=== PATIENT | female | born 1940 | race Caucasian/White ===

== ENCOUNTER → 2021-05-18 | Outpatient (CLI) | payer OTHER ==
[~2021-05-18] MED LIST: DILTIAZEM ER180 M2 PO; ELIQUIS5 MG PO; FUROSEMIDE 20 M20 MG PO; LIPITOR 40 MG T40 M1 PO; PRENATAL PO
== END ==
LOC: LAB 10:35
PROVIDERS: ATTEND Student in an Organized Health Care Education/Training Program
DX: Z01.812 Encounter for preprocedural laboratory examination (principal); Z20.822 Contact with and (suspected) exposure to COVID-19

== ENCOUNTER → 2021-05-21 | Outpatient (CLI) | payer OTHER ==
[~2021-05-21] VITALS: Ht 165.1 cm; Wt 95.3 kg
--- NOTE | 2021-05-21 15:22 | P ---
[facility] [place] [address] PROCEDURE REPORT Name: ISHMAEL CUMMINGS Room #: REG TING [place]#: [id number] Admission: 05/21/21 Attend Phys: Ralf Fernandez Discharge: Date of : 44 Report #: [id number] THIS REPORT FOR: cc: Elizabeth Ochoa MD, Jennifer L MD McElhinney, Christian C. MD ~ cc: Elizabeth Ochoa MD DATE OF SERVICE: 05/21/2021 PROCEDURE PERFORMED: Colonoscopy with polypectomies. HISTORY OF PRESENT ILLNESS: The patient is a 80-year-old female with a history of anemia. She is unsure what her hemoglobin is recently. I do not have any old records to review. She denies any obvious bright red blood per rectum or melena. No change in her bowel movements. No upper symptoms. She is on Eliquis for history of AFib, which she has been holding for the last few days. No family history of colon cancer. Last colonoscopy was essentially normal other than diverticulosis 10 years ago. Plan is for colonoscopy today. DESCRIPTION OF PROCEDURE: The risks and benefits of the procedure were explained to the patient, those risks including but not limited to bleeding, perforation and the risk of sedation. She understood these risks and gave informed consent. Sedation was given using propofol per anesthesia. Next, a digital rectal exam was initially performed, which was normal. Next, using a standard Olympus colonoscope, the scope was placed in the patient's anus and advanced under direct vision to the cecum. The overall prep was excellent. The cecum and ileocecal valve were normal in appearance. In the ascending colon, a 3 mm sessile polyp was noted. This was removed with cold forceps. In the transverse colon, a 4 mm sessile polyp was noted, also removed with cold forceps. The descending colon was normal. Multiple diverticula were noted in the sigmoid colon. No evidence of inflammation or bleeding. In the rectum, a 7 mm partially pedunculated polyp was noted. This was removed by snare cautery. On retroflexion, no abnormalities were noted. The scope was then withdrawn and the procedure terminated. The patient tolerated the procedure well. IMPRESSION: 1. Three colonic polyps as described above. 2. Sigmoid diverticulosis without inflammation. 3. Otherwise, normal colonoscopy. RECOMMENDATIONS: 1. Await biopsy results. 2. Consider repeat colonoscopy in 5 years. 3. We would recommend Hemoccult testing of stools. If positive, consider EGD and possible M2 capsule at that point. [address] [address] PROCEDURE REPORT Name: DENISEDORENEISHMAEL LILIANA Room #: REG TING [place]#: [id number] Admission: 05/21/21 Attend Phys: Ralf Fernandez Discharge: Date of : 44 Report #: [id number] Thank you for allowing me to participate in her care. <ELECTRONICALLY SIGNED> By: Ralf Campbell MD 05/21/21 1522 0818 1303 Ralf Campbell MD /nt
--- NOTE | 2021-05-24 16:06 | PATH ---
[facility] [address] [place] [address] PATHOLOGY RPT PROCEDURE Name: ISHMAEL TORRES Room #: REG CLMelissa [place]#: [id number] Admission: 05/21/21 Date of : 44 Discharge: Report #: [id number] Path Case #: [id number] [facility] Accession Number: [id number] . 01 Material submitted: . PART A: colon - TRANSVERSE COLON POLYP BIOPSY. Modifiers: transverse PART B: colon - ASCENDING COLON POLYP BIOPSY. Modifiers: ascending PART C: rectum - RECTAL COLON POLYP . 01 Clinical history: . COLONOSCOPY ANEMIA . 02 Diagnosis: A. Colonic mucosa (transverse colon polyp biopsy): - Tubular adenoma. . B. Colonic mucosa (ascending colon polyp biopsy): - Changes consistent with small hyperplastic polyp. . C. Colonic mucosa (rectal colon polyp): - Tubular adenoma. (LOWELL:joselyn; 05/24/2021) S 05/24/2021 1254 Local . 02 Comment: We find no evidence of high grade dysplasia or of malignancy. (ISABELLEK:joselyn; 05/24/2021) . 02 Electronically signed: . Bebeto Arizmendi MD, Pathologist NPI- [id number] . 01 Gross description: . A. Received in formalin labeled "Ishmael Torres, transverse polyp biopsy" are 2 fragments of braxton-brown soft tissue measuring 0.4 x 0.3 x 0.3 cm and 0.2 x 0.2 x 0.2 cm. The specimen is submitted entirely in A1. . B. Received in formalin labeled "Ishmael Torres, ascending colon polyp biopsy" is a fragment of braxton-brown soft tissue measuring 0.6 x 0.3 x 0.2 cm. The specimen is submitted entirely in B1. . C. Received in formalin labeled "Ishmael Torres, rectal colon polyp" is a fragment of braxton-brown soft tissue measuring 0.7 x 0.5 x 0.3 cm. The specimen is submitted entirely in C1.([facility]; 05/22/2021) GZA/GZA 05/24/2021 1251 Local . [address] [address] PATHOLOGY RPT PROCEDURE Name: ISHMAEL TORRES LILIANA Room #: REG [facility] [id number] Admission: 05/21/21 Date of : 44 Discharge: Report #: [id number] Path Case #: [id number] Pathologist provided ICD-10: D12.3, D12.8 . 02 CPT . 481693, [id number], 716056 Specimen Comment: A courtesy copy of this report has been sent to [phone] Specimen Comment: [id number] Specimen Comment: Report sent to / DR MEJÍA Performed at: 01 [facility] [address] [place] [id number] MD Seb Naranjo MD Phone: [phone] Performed at: 02 [facility] [address] [id number] MD Bebeto Arizmendi MD Phone: [phone]
== END | disposition home or self-care (01) ==
LOC: GI
PROVIDERS: ATTEND Specialist
DX: D64.9 Anemia, unspecified (principal); K57.30 Diverticulosis of large intestine without perforation or abscess without bleeding; D12.3 Benign neoplasm of transverse colon; D12.8 Benign neoplasm of rectum; K63.89 Other specified diseases of intestine; I10 Essential (primary) hypertension; E78.5 Hyperlipidemia, unspecified; Z79.899 Other long term (current) drug therapy; Z98.890 Other specified postprocedural states; Z96.651 Presence of right artificial knee joint; Z90.710 Acquired absence of both cervix and uterus
CPT/HCPCS: 62110; 62900